=== PATIENT | female | born 1985 | race Asian ===

== ENCOUNTER 2019-03-18 15:28 | Outpatient (CLI) | payer OTHER | END 2019-03-18 21:25 | disposition home or self-care (01) | LOC: SLB 15:28 | PROVIDERS: ATTEND Specialist | DX: O03.9 Complete or unspecified spontaneous abortion without complication (principal) | CPT/HCPCS: 36415; 84702-TC; 86900; 86901 ==

== ENCOUNTER 2019-03-27 16:10 | Outpatient (CLI) | payer OTHER | END 2019-03-27 21:18 | disposition home or self-care (01) | LOC: SLB 16:10 | PROVIDERS: ATTEND Specialist | DX: O02.1 Missed abortion (principal) | CPT/HCPCS: 36415; 84702-TC ==

== ENCOUNTER 2019-04-05 14:01 | Outpatient (CLI) | payer OTHER | END 2019-04-05 21:07 | disposition home or self-care (01) | LOC: SLB 14:01 | PROVIDERS: ATTEND Specialist | DX: O03.9 Complete or unspecified spontaneous abortion without complication (principal) | CPT/HCPCS: 36415; 84702-TC ==

== ENCOUNTER 2019-04-12 11:43 | Outpatient (CLI) | payer OTHER | END 2019-04-12 20:10 | disposition home or self-care (01) | LOC: SLB 11:43 | PROVIDERS: ATTEND Specialist | DX: O03.9 Complete or unspecified spontaneous abortion without complication (principal) | CPT/HCPCS: 36415; 84702-TC ==

== ENCOUNTER 2019-12-17 17:00 | Outpatient (CLI) | payer OTHER ==
[2019-12-17 18:07] LABS: BASOPHILS % (AUTO) 0.5 % (0.0-2.0); EOSINOPHILS # (AUTO) 0.1 K/uL (0.0-0.4); EOSINOPHILS % (AUTO) 1.5 % (0.0-4.0); HEMATOCRIT 38.2 % (36-48); LYMPHOCYTES # (AUTO) 1.7 K/uL (1.0-5.5); LYMPHOCYTES % (AUTO) 25.4 % (20.5-51.5); MEAN CORPUSCULAR HEMOGLOBIN 30 pg (27-31); MEAN CORPUSCULAR HGB CONC 34 % (32-36); MEAN CORPUSCULAR VOLUME 89 fL (79.0-98.0); MONOCYTES # (AUTO) 0.6 K/uL (0.0-1.0); MONOCYTES % (AUTO) 8.2 % (1.7-9.3); NEUTROPHILS # (AUTO) 4.4 K/uL (1.8-7.7); NEUTROPHILS % (AUTO) 64.4 % (40.0-70.0); PLATELET COUNT (AUTO) 288 K/uL (130-430); RED BLOOD CELL COUNT(AUTO) 4.28 MIL/uL (4.2-6.2); RED CELL DISTRIBUTION WIDTH 13.2 % (9.0-15.0); WHITE BLOOD COUNT (AUTO) 6.9 K/uL (4.8-10.8)
[2019-12-19 08:06] LABS: HEPATITIS B SURFACE AG Negative (Negative)
[2019-12-20 05:14] LABS: RUBELLA AB, IgM <20.0 AU/mL (0.0-19.9)
== END 2019-12-17 21:09 | disposition home or self-care (01) ==
LOC: SLB 17:00
PROVIDERS: ATTEND Specialist
DX: Z34.00 Encounter for supervision of normal first pregnancy, unspecified trimester (principal); Z3A.00 Weeks of gestation of pregnancy not specified
CPT/HCPCS: 36415; 85025; 86592; 86762; 86886; 86900; 86901; 87340

== ENCOUNTER 2020-04-15 08:15 | Outpatient (CLI) | payer OTHER ==
[2020-04-15 09:25] LABS: BASOPHILS # (AUTO) 0.1 K/uL (0.0-0.2); BASOPHILS % (AUTO) 0.6 % (0.0-2.0); EOSINOPHILS # (AUTO) 0.2 K/uL (0.0-0.4); EOSINOPHILS % (AUTO) 1.9 % (0.0-4.0); HEMATOCRIT 34.1 % (36-48); HEMOGLOBIN 11.5 g/dL (12.0-16.0); LYMPHOCYTES % (AUTO) 22.7 % (20.5-51.5); MEAN CORPUSCULAR HEMOGLOBIN 30 pg (27-31); MEAN CORPUSCULAR HGB CONC 34 % (32-36); MEAN CORPUSCULAR VOLUME 90 fL (79.0-98.0); MONOCYTES # (AUTO) 0.6 K/uL (0.0-1.0); MONOCYTES % (AUTO) 6.9 % (1.7-9.3); NEUTROPHILS % (AUTO) 67.9 % (40.0-70.0); PLATELET COUNT (AUTO) 252 K/uL (130-430); RED BLOOD CELL COUNT(AUTO) 3.79 MIL/uL (4.2-6.2); RED CELL DISTRIBUTION WIDTH 12.5 % (9.0-15.0); WHITE BLOOD COUNT (AUTO) 8.8 K/uL (4.8-10.8)
[2020-04-17 18:09] LABS: FTA-Ab (T PALLIDUM) Non Reactive (Non Reactive)
== END 2020-04-15 21:04 | disposition home or self-care (01) ==
LOC: SLB 08:15
PROVIDERS: ATTEND Specialist
DX: Z34.92 Encounter for supervision of normal pregnancy, unspecified, second trimester (principal); Z3A.00 Weeks of gestation of pregnancy not specified
CPT/HCPCS: 36415; 82947-TC; 85025; 86592; 86780

== ENCOUNTER 2020-04-29 08:29 | Outpatient (CLI) | payer OTHER | END 2020-04-29 20:19 | disposition home or self-care (01) | LOC: SLB 08:29 | PROVIDERS: ATTEND Specialist | DX: O36.63X0 Maternal care for excessive fetal growth, third trimester, not applicable or unspecified (principal); Z3A.00 Weeks of gestation of pregnancy not specified | CPT/HCPCS: 36415; 82947-TC ==

== ENCOUNTER 2020-06-06 10:59 | Observation (INO) | payer OTHER ==
[~2020-06-06] VITALS: Ht 162.6 cm; Wt 68.5 kg
== END 2020-06-06 12:45 | disposition home or self-care (01) ==
LOC: SPU 10:59
PROVIDERS: ADMIT Specialist; ATTEND Specialist
DX: O40.3XX0 Polyhydramnios, third trimester, not applicable or unspecified (principal); Z3A.35 35 weeks gestation of pregnancy
CPT/HCPCS: 59025; G0378

== ENCOUNTER 2020-06-20 10:30 | Observation (INO) | payer OTHER | END 2020-06-20 11:05 | disposition home or self-care (01) | LOC: SPU 10:30 | PROVIDERS: ADMIT Specialist; ATTEND Specialist | DX: Z34.83 Encounter for supervision of other normal pregnancy, third trimester (principal); Z3A.37 37 weeks gestation of pregnancy | CPT/HCPCS: G0378 ==

== ENCOUNTER 2020-06-27 10:51 | Observation (INO) | payer OTHER, SELFPAY ==
[~2020-06-27] VITALS: Ht 162.6 cm; Wt 72.6 kg
== END 2020-06-27 11:45 | disposition home or self-care (01) ==
LOC: SPU 10:51
PROVIDERS: ADMIT Specialist; ATTEND Specialist
DX: Z03.818 Encounter for observation for suspected exposure to other biological agents ruled out (principal); Z3A.38 38 weeks gestation of pregnancy
CPT/HCPCS: 81002; G0378; U0003

== ENCOUNTER 2020-07-01 11:49 | Inpatient (IN) | payer OTHER, SELFPAY ==
[~2020-07-01] VITALS: Ht 165.1 cm; Wt 73.0 kg
[2020-07-01] MEDS ORDERED: NALOXONE HCL 0.4 MG/ML AMP (NARCAN) IVP PRN (20:45)
[2020-07-01] MEDS ORDERED: DINOPROSTONE 10 MG SUPP VG ONE (20:45)
[2020-07-01] MEDS ORDERED: TERBUTALINE SULFATE 1 MG/ML VIAL SUBCUT ONE (20:45)
[2020-07-01] MEDS ORDERED: MORPHINE SULFATE 10 MG/ML VIAL IVP PRN (20:45)
[2020-07-01 21:17] LABS: BASOPHILS % (AUTO) 0.5 % (0.0-2.0); EOSINOPHILS # (AUTO) 0.1 K/uL (0.0-0.4); EOSINOPHILS % (AUTO) 1.6 % (0.0-4.0); HEMATOCRIT 34.1 % (36-48); HEMOGLOBIN 11.4 g/dL (12.0-16.0); LYMPHOCYTES # (AUTO) 2.1 K/uL (1.0-5.5); LYMPHOCYTES % (AUTO) 25.5 % (20.5-51.5); MEAN CORPUSCULAR HEMOGLOBIN 30 pg (27-31); MEAN CORPUSCULAR HGB CONC 33 % (32-36); MEAN CORPUSCULAR VOLUME 88 fL (79.0-98.0); MONOCYTES # (AUTO) 0.8 K/uL (0.0-1.0); MONOCYTES % (AUTO) 9.5 % (1.7-9.3); NEUTROPHILS # (AUTO) 5.3 K/uL (1.8-7.7); NEUTROPHILS % (AUTO) 62.9 % (40.0-70.0); PLATELET COUNT (AUTO) 262 K/uL (130-430); RED BLOOD CELL COUNT(AUTO) 3.86 MIL/uL (4.2-6.2); RED CELL DISTRIBUTION WIDTH 13.2 % (9.0-15.0); WHITE BLOOD COUNT (AUTO) 8.4 K/uL (4.8-10.8)
[2020-07-01 22:27] VITALS: BP_SYST 108
[2020-07-02] MEDS ORDERED: DINOPROSTONE 10 MG SUPP VG ONE (09:30)
[2020-07-03] MEDS: OXYTOCIN/0.9 % SODIUM CHLORIDE 1,000 ML IV SCH (03:00)
[2020-07-03] MEDS: LR 1,000 ML IV SCH (09:17)
[2020-07-04] MEDS: OXYTOCIN/0.9 % SODIUM CHLORIDE 1,000 ML IV SCH (10:47)
[2020-07-04] MEDS: LR 1,000 ML IV SCH ×3 (10:47→22:21)
[2020-07-04] MEDS ORDERED: fentaNYL CITRATE/PF 100 MCG/2 ML AMP ONE (19:56)
[2020-07-04] MEDS ORDERED: ROPIVACAINE HCL/PF 0.2% 200 ML ONE (20:25)
[2020-07-04] MEDS ORDERED: NALOXONE HCL 0.4 MG/ML AMP (NARCAN) IVP PRN (21:45)
[2020-07-04] MEDS ORDERED: ONDANSETRON HCL 4 MG/2 ML VIAL IVP PRN ×2 (21:45→23:45)
[2020-07-04] MEDS ORDERED: FENT2mCg/mL-ROPIVA0.2%/NS EPID 200 ML EP SCH (21:45)
[2020-07-04] MEDS ORDERED: DIPHENHYDRAMINE INJ 50 MG/ML VIAL IVP PRN (21:45)
[2020-07-05] MEDS: LR 1,000 ML IV SCH (05:54)
[2020-07-05] MEDS: OXYTOCIN/0.9 % SODIUM CHLORIDE 1,000 ML IV SCH (05:55)
[2020-07-05] MEDS ORDERED: DIPH-TET-PERTUS Vaccine 0.5 ML VIAL (ADACEL) I.M. PRN (07:15)
[2020-07-05] MEDS ORDERED: LANOLIN 7 GM OINT. TP PRN (07:15)
[2020-07-05] MEDS ORDERED: HYDROCORTISONE 0.5%, 28.35 GM TOPICAL CREAM TP PRN (07:15)
[2020-07-05] MEDS ORDERED: ANUSOL 1 EA SUPP.RECT (PREPARATION H) RC PRN (07:15)
[2020-07-05] MEDS ORDERED: METHYLERGONOVINE MALEATE 0.2 MG TABLET PO PRN (07:15)
[2020-07-05] MEDS ORDERED: OXYTOCIN/0.9 % SODIUM CHLORIDE 1,000 ML IV SCH (07:15)
[2020-07-05] MEDS ORDERED: RHO(D) IMMUNE GLOBULIN/MALTOSE 1500 UNITS/1.3 ML (WINHRO) IM PRN (07:15)
[2020-07-05] MEDS ORDERED: DERMOPLAST SPRAY TP PRN (07:15)
[2020-07-05] MEDS ORDERED: SENNOSIDES/DOCUSATE SODIUM 1 TAB TABLET(SENOKOT-S) PO PRN (07:15)
[2020-07-05] MEDS ORDERED: HYDROcodone/ACETAMIN 5-325 MG TAB (NORCO/ VICODIN) PO PRN (07:15)
[2020-07-05] MEDS ORDERED: WITCH HAZEL LEAF 1 MED.PAD MED.PAD TP PRN (07:15)
[2020-07-05] MEDS ORDERED: OXYCODONE/ACETAMINOPHEN 5-325 TABLET PO PRN ×2 (07:15)
[2020-07-05] MEDS ORDERED: MEASLES,MUMPS&RUBELLA VACC/PF 12500 UNIT/0.5 ML VIAL SUBQ PRN (07:15)
[2020-07-05] MEDS ORDERED: NALOXONE HCL 0.4 MG/ML AMP (NARCAN) IVP PRN (07:15)
[2020-07-05] MEDS ORDERED: OXYTOCIN/0.9 % SODIUM CHLORIDE 1,000 ML IV ONE (07:15)
[2020-07-05] MEDS: DOCUSATE SODIUM 100 MG CAPSULE PO PRN (12:43)
[2020-07-05] MEDS: IBUPROFEN 600 MG TABLET PO SCH ×2 (12:43→17:58)
[2020-07-05] MEDS ORDERED: TEMAZEPAM 15 MG CAPSULE PO PRN (21:00)
[2020-07-06] MEDS: DOCUSATE SODIUM 100 MG CAPSULE PO PRN (00:23)
[2020-07-06] MEDS: IBUPROFEN 600 MG TABLET PO SCH ×3 (00:23→12:19)
[2020-07-06 07:36] LABS: BASOPHILS % (AUTO) 0.3 % (0.0-2.0); EOSINOPHILS # (AUTO) 0.1 K/uL (0.0-0.4); HEMATOCRIT 26.6 % (36-48); HEMOGLOBIN 8.7 g/dL (12.0-16.0); LYMPHOCYTES # (AUTO) 1.7 K/uL (1.0-5.5); LYMPHOCYTES % (AUTO) 16.5 % (20.5-51.5); MEAN CORPUSCULAR HEMOGLOBIN 30 pg (27-31); MEAN CORPUSCULAR HGB CONC 33 % (32-36); MEAN CORPUSCULAR VOLUME 90 fL (79.0-98.0); MONOCYTES # (AUTO) 0.9 K/uL (0.0-1.0); MONOCYTES % (AUTO) 8.6 % (1.7-9.3); NEUTROPHILS # (AUTO) 7.7 K/uL (1.8-7.7); NEUTROPHILS % (AUTO) 73.6 % (40.0-70.0); PLATELET COUNT (AUTO) 182 K/uL (130-430); RED BLOOD CELL COUNT(AUTO) 2.96 MIL/uL (4.2-6.2); RED CELL DISTRIBUTION WIDTH 13.6 % (9.0-15.0); WHITE BLOOD COUNT (AUTO) 10.4 K/uL (4.8-10.8)
[2020-07-06 20:28] LABS: FTA-Ab (T PALLIDUM) Non Reactive (Non Reactive)
== END 2020-07-06 12:40 | disposition home or self-care (01) | DRG 806 ==
LOC: SPU 20:11
PROVIDERS: ADMIT Specialist; ATTEND Specialist
PROC: 10E0XZZ Delivery of Products of Conception, External Approach (ICD-10-PCS; principal; 2020-07-03)
PROC: 3E033VJ Introduction of Other Hormone into Peripheral Vein, Percutaneous Approach (ICD-10-PCS; 2020-07-03)
DX: O40.3XX0 Polyhydramnios, third trimester, not applicable or unspecified (principal); O41.03X0 Oligohydramnios, third trimester, not applicable or unspecified; Z37.0 Single live birth; O76 Abnormality in fetal heart rate and rhythm complicating labor and delivery; Z3A.38 38 weeks gestation of pregnancy
CPT/HCPCS: 36415; 76815; 85025; 86592; 86780; 86886; 86900; 86901; 90715; J2270; J2590; J3010; J7120